=== PATIENT | female | born 2000 | race Caucasian/White ===

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

== ENCOUNTER 2021-12-02 16:29 | Emergency (ER) | payer MEDICAID ==
[~2021-12-02] VITALS: Ht 157.5 cm; Wt 84.1 kg
[~2021-12-02 16:29] MED LIST: PHEN-824 PO
[2021-12-02 16:47] VITALS: BP 140/98
[2021-12-02] MEDS ORDERED: HYDROcodone/acetaminophen 5mg/325mg tablet PO ONE (17:20)
[2021-12-02] MEDS ORDERED: PENI500T2 PO (17:25)
[2021-12-02] MEDS ORDERED: HYDR-3965 PO (17:25)
== END 2021-12-02 17:42 | disposition home or self-care (01) ==
LOC: ER 16:30
DX: K05.30 Chronic periodontitis, unspecified (principal); J36 Peritonsillar abscess; K08.89 Other specified disorders of teeth and supporting structures; Z79.899 Other long term (current) drug therapy; Z79.2 Long term (current) use of antibiotics
CPT/HCPCS: 99283